=== PATIENT | male | born 1940 | race African-American/Black ===

== ENCOUNTER 2018-10-29 10:15 | Inpatient (IN) | payer BC, MEDICARE ==
[~2018-10-29] VITALS: Ht 162.6 cm; Wt 90.3 kg
[2018-10-29] VITALS (13 sets, daily range): BP systolic 70–126; BP diastolic 28–98
[~2018-10-29 10:15] MED LIST: ALT10 PO; ASPI-1159 PO; FENO145 PO; METO25TA6 PO
[2018-10-29] MEDS ORDERED: SODIUM CHLORIDE 0.9% 1,000 ML IV ONE (10:38)
[2018-10-29 11:42] LABS: HEMATOCRIT. 34.7 % (42.0-52.0); HEMOGLOBIN. 11.1 g/dL (14.0-18.0); MEAN CORPUSCULAR HEMOGLOBIN 29.6 pg (28.0-32.0); MEAN CORPUSCULAR VOLUME 92.5 fL (80.0-94.0); MEAN PLATELET VOLUME 8.6 fl (7.4-10.4); PLATELET 133 x1000/uL (130-400); RED BLOOD CELL COUNT 3.75 mill/uL (4.7-6.1); RED CELL DISTRIBUTION WIDTH 17.2 % (11.6-14.6)
[2018-10-29 11:47] LABS: CHLORIDE 114 mEq/L (98-107); INR 1.2; PROTHROMBIN TIME 12.1 sec (9.1-11.1)
[2018-10-29 11:53] LABS: BG BASE EXCESS -7.5 mmol/L (-2.0-2.0); BG CARBOXYHEMOGLOBIN 0.6 % (0.5-1.5); BG DEOXYHEMOGLOBIN 1.9 % (0.0-5.0); BG FRACTION INSPIRED OXYGEN 100; BG HCO3 ACT 18.7 mmol/L (22.0-26.0); BG METHEMOGLOBIN 0.2 % (0.0-1.5); BG OXYGEN SATURATION 98.1 % (92.0-98.5); BG OXYHEMOGLOBIN 97.3 % (94.0-97.0); BG PCO2 40.6 mmHg (35.0-45.0); BG PH 7.281 (7.350-7.450); BG PO2 131.9 mmHg (75.0-100.0); BG SAMPLE SITE RIGHT RADIAL; BG TOTAL HEMOGLOBIN 11.2 g/dL (12.0-18.0); BG VENT MODE MASK - NRB
[2018-10-29 11:54] LABS: ETHANOL BLOOD < 10 mg/dL
[2018-10-29 12:00] LABS: CREATINE KINASE 513 IU/L (39-308)
[2018-10-29] MEDS ORDERED: PIPERACILLIN/TAZ 3.375G PREMIX 50 ML IV ONE (13:15)
[2018-10-29] MEDS ORDERED: VANCOMYCIN 1 G PREMIX 200 ML IV SCH (13:15)
[2018-10-29 13:42] LABS: PLATELET ESTIMATE NORMAL
[2018-10-29] MEDS ORDERED: ONDANSETRON HCL 4MG/2ML INJ IV PRN (16:00)
[2018-10-29] MEDS ORDERED: NOREPINEPHRINE 4MG/250ML PMX 250 ML IV PRN (17:30)
[2018-10-29 18:00] LABS: BG BILEVEL POS AIRWAY PRESSURE 17/5; BG CARBOXYHEMOGLOBIN 0.3 % (0.5-1.5); BG FRACTION INSPIRED OXYGEN 60; BG HCO3 ACT 20.3 mmol/L (22.0-26.0); BG METHEMOGLOBIN 0.3 % (0.0-1.5); BG OXYGEN SATURATION 86.9 % (92.0-98.5); BG OXYHEMOGLOBIN 86.4 % (94.0-97.0); BG PCO2 34.4 mmHg (35.0-45.0); BG PH 7.388 (7.350-7.450); BG SAMPLE SITE RIGHT RADIAL; BG TOTAL HEMOGLOBIN 11.8 g/dL (12.0-18.0); BG VENT MODE MASK - BIPAP; BG VENT RATE 14 set
[2018-10-29 19:07] LABS: CLARITY URINE TURBID (CLEAR); COLOR URINE YELLOW (YELLOW); KETONES URINE TRACE (NEGATIVE); LEUKOCYTE ESTERASE URINE 3+ (NEGATIVE); NITRITE URINE NEGATIVE (NEGATIVE); OCCULT BLOOD URINE 2+ (NEGATIVE); PROTEIN URINE 2+ (NEGATIVE); SPECIFIC GRAVITY URINE 1.016 (1.005-1.030)
[2018-10-29 19:21] LABS: *BARBITURATES SCREEN URINE NEGATIVE (NEGATIVE); *BENZODIAZEPINES SCREEN URINE NEGATIVE (NEGATIVE)
[2018-10-29 19:22] LABS: *COCAINE SCREEN URINE NEGATIVE (NEGATIVE); CANNABINOID URINE SCREEN NEGATIVE (NEGATIVE); METHADONE URINE SCREEN NEGATIVE (NEGATIVE); OPIATES URINE SCREEN NEGATIVE (NEGATIVE); PHENCYCLIDINE URINE SCREEN NEGATIVE (NEGATIVE)
[2018-10-29 19:23] LABS: *AMPHETAMINES SCREEN URINE NEGATIVE (NEGATIVE)
[2018-10-29] MEDS ORDERED: DEXT 5%/0.45% NACL 1000ML 1,000 ML IV SCH ×2 (19:50→23:00)
[2018-10-29 22:54] LABS: BASOPHILS % 0.3 % (0.0-2.0); EOSINOPHILS % 0.3 % (0.0-5.0); HEMATOCRIT. 35.4 % (42.0-52.0); HEMOGLOBIN. 11.2 g/dL (14.0-18.0); LYMPHOCYTES % 8.7 % (20.0-50.0); MEAN CORPUSCULAR HEMOGLOBIN 29.1 pg (28.0-32.0); MEAN CORPUSCULAR VOLUME 91.7 fL (80.0-94.0); MEAN PLATELET VOLUME 8.8 fl (7.4-10.4); MONOCYTES % 11.3 % (2.0-8.0); NEUTROPHILS % 79.4 % (40.0-76.0); PLATELET 132 x1000/uL (130-400); RED BLOOD CELL COUNT 3.86 mill/uL (4.7-6.1); RED CELL DISTRIBUTION WIDTH 17.7 % (11.6-14.6)
[2018-10-29] MEDS: DEXT 5%/0.45% NACL 1000ML 1,000 ML IV SCH (23:02)
[2018-10-29] MEDS: PIPERACILLIN/TAZ 3.375G PREMIX 50 ML IV SCH (23:02)
[2018-10-29] MEDS: NOREPINEPHRINE 32 MG in DEXT 5% WATER 468 ML IV PRN (23:03)
[2018-10-30] VITALS (88 sets, daily range): BP systolic 66–155; BP diastolic 32–100
[2018-10-30 03:50] LABS: CREATINE KINASE 527 IU/L (39-308)
[2018-10-30] MEDS ORDERED: PHENYLEPHRINE 40 MG in DEXT 5% WATER 246 ML IV PRN (05:45)
[2018-10-30 05:48] LABS: BASOPHILS % 0.2 % (0.0-2.0); EOSINOPHILS % 0.4 % (0.0-5.0); HEMATOCRIT. 34.9 % (42.0-52.0); HEMOGLOBIN. 11.3 g/dL (14.0-18.0); LYMPHOCYTES % 8.9 % (20.0-50.0); MEAN CORPUSCULAR HEMOGLOBIN 29.6 pg (28.0-32.0); MEAN CORPUSCULAR VOLUME 91.4 fL (80.0-94.0); MEAN PLATELET VOLUME 8.2 fl (7.4-10.4); MONOCYTES % 9.9 % (2.0-8.0); NEUTROPHILS % 80.6 % (40.0-76.0); PLATELET 123 x1000/uL (130-400); RED BLOOD CELL COUNT 3.82 mill/uL (4.7-6.1); RED CELL DISTRIBUTION WIDTH 17.6 % (11.6-14.6)
[2018-10-30 05:59] LABS: CHLORIDE 111 mEq/L (98-107)
[2018-10-30] MEDS ORDERED: VANCOMYCIN 750 MG PREMIX 150 ML IV SCH (06:00)
[2018-10-30 06:15] LABS: LDL CHOLESTEROL 30 mg/dL (5-100)
[2018-10-30 06:16] LABS: CREATINE KINASE 632 IU/L (39-308)
[2018-10-30 06:17] LABS: HDL CHOLESTEROL 99 mg/dL (40-59)
[2018-10-30] MEDS: PIPERACILLIN/TAZ 3.375G PREMIX 50 ML IV SCH (07:06)
[2018-10-30 08:50] LABS: BG BASE EXCESS -4.8 mmol/L (-2.0-2.0); BG BILEVEL POS AIRWAY PRESSURE 17/5; BG CARBOXYHEMOGLOBIN 0.9 % (0.5-1.5); BG DEOXYHEMOGLOBIN 2.7 % (0.0-5.0); BG HCO3 ACT 18.8 mmol/L (22.0-26.0); BG METHEMOGLOBIN 0.3 % (0.0-1.5); BG OXYGEN SATURATION 97.3 % (92.0-98.5); BG OXYHEMOGLOBIN 96.1 % (94.0-97.0); BG PCO2 30.2 mmHg (35.0-45.0); BG PH 7.411 (7.350-7.450); BG PO2 93.6 mmHg (75.0-100.0); BG SAMPLE SITE RIGHT BRACHIAL; BG TOTAL HEMOGLOBIN 11.9 g/dL (12.0-18.0); BG VENT MODE MASK - BIPAP; BG VENT RATE 14 set
[2018-10-30] MEDS ORDERED: ENOXAPARIN 40MG/0.4ML SYR SUBCUT SCH (09:00)
[2018-10-30] MEDS: PROPOFOL 10MG/ML 100ML 100 ML IV PRN (09:42)
[2018-10-30] MEDS: ENOXAPARIN 30MG/0.3ML SYR SUBCUT SCH (09:45)
[2018-10-30 10:02] LABS: BG BASE EXCESS -5.5 mmol/L (-2.0-2.0); BG CARBOXYHEMOGLOBIN 0.1 % (0.5-1.5); BG HCO3 ACT 19.2 mmol/L (22.0-26.0); BG METHEMOGLOBIN 0.5 % (0.0-1.5); BG OXYHEMOGLOBIN 97.4 % (94.0-97.0); BG PCO2 34.7 mmHg (35.0-45.0); BG PH 7.361 (7.350-7.450); BG PO2 116.9 mmHg (75.0-100.0); BG SAMPLE SITE RIGHT RADIAL; BG TIDAL VOLUME(mL) 550 mL; BG TOTAL HEMOGLOBIN 12.2 g/dL (12.0-18.0); BG VENT MODE VENT - A/C; BG VENT RATE 16 set
[2018-10-30] MEDS: IPRATROPIUM/ALBUTEROL 0.5-3(2.5)MG/3ML NEB HHN SCH ×3 (12:31→20:15)
[2018-10-30] MEDS: PIPERACILLIN/TAZ 2.25G PREMIX 50 ML IV SCH ×3 (12:52→23:51)
[2018-10-30] MEDS ORDERED: ETOMIDATE 2MG/ML 10ML VIAL IV ONE (15:27)
[2018-10-30] MEDS ORDERED: SUCCINYLCHOLINE CHLORIDE 200MG/10ML IV ONE (15:27)
[2018-10-30] MEDS: NYSTATIN POWDER 15GM TOP SCH ×2 (15:54→21:17)
[2018-10-30] MEDS: DEXT 5%/0.45% NACL 1000ML 1,000 ML IV SCH (15:56)
[2018-10-30] MEDS: DEXT 5%/0.9% NACL 1,000 ML IV SCH (16:21)
[2018-10-30] MEDS: ACETYLCYSTEINE 100MG/ML 10% VIAL 4ML INH SCH (16:58)
[2018-10-30] MEDS: NOREPINEPHRINE 32 MG in DEXT 5% WATER 468 ML IV PRN (20:45)
[2018-10-31] VITALS (96 sets, daily range): BP systolic 91–150; BP diastolic 39–87
[2018-10-31] MEDS: IPRATROPIUM/ALBUTEROL 0.5-3(2.5)MG/3ML NEB HHN SCH ×6 (00:55→20:55)
[2018-10-31] MEDS: ACETYLCYSTEINE 100MG/ML 10% VIAL 4ML INH SCH ×3 (01:11→16:23)
[2018-10-31] MEDS: DEXT 5%/0.9% NACL 1,000 ML IV SCH ×3 (03:54→16:51)
[2018-10-31] MEDS: PROPOFOL 10MG/ML 100ML 100 ML IV PRN ×2 (03:58→13:40)
[2018-10-31 05:27] LABS: HEMATOCRIT. 33.5 % (42.0-52.0); MEAN CORPUSCULAR HEMOGLOBIN 29.8 pg (28.0-32.0); MEAN CORPUSCULAR VOLUME 91.1 fL (80.0-94.0); MEAN PLATELET VOLUME 8.5 fl (7.4-10.4); PLATELET 91 x1000/uL (130-400); RED BLOOD CELL COUNT 3.68 mill/uL (4.7-6.1); RED CELL DISTRIBUTION WIDTH 17.7 % (11.6-14.6)
[2018-10-31 05:36] LABS: INR 1.3; PROTHROMBIN TIME 12.8 sec (9.1-11.1)
[2018-10-31] MEDS: PIPERACILLIN/TAZ 2.25G PREMIX 50 ML IV SCH ×4 (05:52→23:35)
[2018-10-31 06:02] LABS: PHOSPHORUS 4.1 mg/dL (2.5-4.9)
[2018-10-31 07:42] LABS: BG BASE EXCESS -4.9 mmol/L (-2.0-2.0); BG FRACTION INSPIRED OXYGEN 80; BG HCO3 ACT 19.6 mmol/L (22.0-26.0); BG PCO2 35.1 mmHg (35.0-45.0); BG PH 7.365 (7.350-7.450); BG PO2 239.2 mmHg (75.0-100.0); BG SAMPLE SITE RIGHT RADIAL; BG TIDAL VOLUME(mL) 550 mL; BG VENT MODE VENT - A/C; BG VENT RATE 16 set
[2018-10-31 07:43] LABS: BG CARBOXYHEMOGLOBIN 0.3 % (0.5-1.5); BG DEOXYHEMOGLOBIN 0.8 % (0.0-5.0); BG METHEMOGLOBIN 0.3 % (0.0-1.5); BG OXYGEN SATURATION 99.2 % (92.0-98.5); BG OXYHEMOGLOBIN 98.6 % (94.0-97.0)
[2018-10-31 08:11] LABS: PLATELET ESTIMATE DECREASED
[2018-10-31] MEDS: ENOXAPARIN 30MG/0.3ML SYR SUBCUT SCH (11:14)
[2018-10-31] MEDS: NYSTATIN POWDER 15GM TOP SCH ×2 (11:14→21:49)
[2018-10-31] MEDS: PANTOPRAZOLE SODIUM 40 MG/VIAL IV SCH (13:40)
[2018-10-31] MEDS ORDERED: VANCOMYCIN 750 MG PREMIX 150 ML IV NR (17:00)
[2018-10-31] MEDS: NOREPINEPHRINE 32 MG in DEXT 5% WATER 468 ML IV PRN (21:46)
[2018-11-01] VITALS (90 sets, daily range): BP systolic 103–152; BP diastolic 47–113
[2018-11-01] MEDS: IPRATROPIUM/ALBUTEROL 0.5-3(2.5)MG/3ML NEB HHN SCH ×6 (00:55→20:17)
[2018-11-01] MEDS: ACETYLCYSTEINE 100MG/ML 10% VIAL 4ML INH SCH ×3 (00:55→15:17)
[2018-11-01] MEDS: NOREPINEPHRINE 32 MG in DEXT 5% WATER 468 ML IV PRN (03:23)
[2018-11-01] MEDS: PIPERACILLIN/TAZ 2.25G PREMIX 50 ML IV SCH (05:04)
[2018-11-01] MEDS ORDERED: LIDOCAINE HCL 1% 20ML VIAL (Pyxis) INJ ONE (08:34)
[2018-11-01] MEDS: PANTOPRAZOLE SODIUM 40 MG/VIAL IV SCH (10:23)
[2018-11-01] MEDS: ENOXAPARIN 30MG/0.3ML SYR SUBCUT SCH (10:23)
[2018-11-01] MEDS: NYSTATIN POWDER 15GM TOP SCH ×2 (10:24→21:30)
[2018-11-01] MEDS: PROPOFOL 10MG/ML 100ML 100 ML IV PRN (10:28)
[2018-11-01 13:53] LABS: BG BASE EXCESS -2.6 mmol/L (-2.0-2.0); BG CARBOXYHEMOGLOBIN 0.7 % (0.5-1.5); BG CPAP (cmH2O) 0 cm(H2O); BG DEOXYHEMOGLOBIN 3.4 % (0.0-5.0); BG HCO3 ACT 21.5 mmol/L (22.0-26.0); BG METHEMOGLOBIN 0.3 % (0.0-1.5); BG OXYGEN SATURATION 96.6 % (92.0-98.5); BG OXYHEMOGLOBIN 95.6 % (94.0-97.0); BG PCO2 34.8 mmHg (35.0-45.0); BG PH 7.409 (7.350-7.450); BG PO2 84.4 mmHg (75.0-100.0); BG SAMPLE SITE RIGHT BRACHIAL; BG TOTAL HEMOGLOBIN 11.8 g/dL (12.0-18.0); BG VENT MODE VENT - CPAP
[2018-11-01] MEDS: CEFAZOLIN 1000MG PREMIX 50 ML IV SCH (14:43)
[2018-11-01 17:13] LABS: BASOPHILS % 0.1 % (0.0-2.0); EOSINOPHILS % 0.3 % (0.0-5.0); HEMATOCRIT. 30.3 % (42.0-52.0); HEMOGLOBIN. 9.7 g/dL (14.0-18.0); LYMPHOCYTES % 7.1 % (20.0-50.0); MEAN CORPUSCULAR HEMOGLOBIN 29.3 pg (28.0-32.0); MEAN CORPUSCULAR VOLUME 91.4 fL (80.0-94.0); MEAN PLATELET VOLUME 8.6 fl (7.4-10.4); MONOCYTES % 3.7 % (2.0-8.0); NEUTROPHILS % 88.8 % (40.0-76.0); PLATELET 61 x1000/uL (130-400); RED BLOOD CELL COUNT 3.31 mill/uL (4.7-6.1)
[2018-11-02] VITALS (72 sets, daily range): BP systolic 116–174; BP diastolic 43–84
[2018-11-02] MEDS: ACETYLCYSTEINE 100MG/ML 10% VIAL 4ML INH SCH ×2 (00:24→08:54)
[2018-11-02] MEDS: IPRATROPIUM/ALBUTEROL 0.5-3(2.5)MG/3ML NEB HHN SCH ×5 (00:24→20:09)
[2018-11-02 06:10] LABS: BASOPHILS % 0.1 % (0.0-2.0); EOSINOPHILS % 0.3 % (0.0-5.0); HEMATOCRIT. 28.9 % (42.0-52.0); HEMOGLOBIN. 9.7 g/dL (14.0-18.0); LYMPHOCYTES % 8.3 % (20.0-50.0); MEAN CORPUSCULAR HEMOGLOBIN 30.5 pg (28.0-32.0); MEAN CORPUSCULAR VOLUME 90.8 fL (80.0-94.0); MEAN PLATELET VOLUME 8.5 fl (7.4-10.4); MONOCYTES % 5.5 % (2.0-8.0); NEUTROPHILS % 85.8 % (40.0-76.0); PLATELET 56 x1000/uL (130-400); RED BLOOD CELL COUNT 3.18 mill/uL (4.7-6.1)
[2018-11-02 07:04] LABS: CHLORIDE 122 mEq/L (98-107)
[2018-11-02 07:12] LABS: CREATINE KINASE 393 IU/L (39-308)
[2018-11-02 07:15] LABS: CREATINE KINASE MB FRACTION 4.8 ng/mL (0.5-3.6)
[2018-11-02] MEDS: PANTOPRAZOLE SODIUM 40 MG/VIAL IV SCH (09:00)
[2018-11-02] MEDS: NYSTATIN POWDER 15GM TOP SCH ×2 (12:04→21:02)
[2018-11-02] MEDS: ENOXAPARIN 30MG/0.3ML SYR SUBCUT SCH (12:20)
[2018-11-02] MEDS: CEFAZOLIN 1000MG PREMIX 50 ML IV SCH (19:34)
[2018-11-02] MEDS: FUROSEMIDE 40MG/4ML VIAL IVP SCH (19:34)
[2018-11-02] MEDS: SODIUM CHLORIDE 3% FOR INH 4ML UD NEB INH SCH (20:09)
[2018-11-03] VITALS (40 sets, daily range): BP systolic 123–188; BP diastolic 61–134
[2018-11-03] MEDS: ACETYLCYSTEINE 100MG/ML 10% VIAL 4ML INH SCH ×3 (00:14→16:52)
[2018-11-03] MEDS: IPRATROPIUM/ALBUTEROL 0.5-3(2.5)MG/3ML NEB HHN SCH ×6 (00:14→21:40)
[2018-11-03] MEDS: SODIUM CHLORIDE 3% FOR INH 4ML UD NEB INH SCH ×4 (04:41→21:41)
[2018-11-03 06:35] LABS: BASOPHILS % 0.1 % (0.0-2.0); EOSINOPHILS % 0.4 % (0.0-5.0); HEMATOCRIT. 32.4 % (42.0-52.0); HEMOGLOBIN. 10.5 g/dL (14.0-18.0); LYMPHOCYTES % 12.3 % (20.0-50.0); MEAN CORPUSCULAR HEMOGLOBIN 29.3 pg (28.0-32.0); MEAN CORPUSCULAR VOLUME 90.2 fL (80.0-94.0); MEAN PLATELET VOLUME 8.9 fl (7.4-10.4); MONOCYTES % 9.7 % (2.0-8.0); NEUTROPHILS % 77.5 % (40.0-76.0); RED BLOOD CELL COUNT 3.59 mill/uL (4.7-6.1); RED CELL DISTRIBUTION WIDTH 17.8 % (11.6-14.6)
[2018-11-03 07:05] LABS: PHOSPHORUS 5.4 mg/dL (2.5-4.9)
[2018-11-03 07:47] LABS: PLATELET 50 x1000/uL (130-400)
[2018-11-03] MEDS: PANTOPRAZOLE SODIUM 40 MG/VIAL IV SCH (09:45)
[2018-11-03] MEDS: FUROSEMIDE 40MG/4ML VIAL IVP SCH (09:45)
[2018-11-03] MEDS: NYSTATIN POWDER 15GM TOP SCH ×2 (09:47→22:03)
[2018-11-03] MEDS: DILTIAZEM HCL 30MG TABLET PO SCH ×2 (13:51→22:02)
[2018-11-03] MEDS: CEFAZOLIN 1000MG PREMIX 50 ML IV SCH (13:52)
[2018-11-03] MEDS: NITROGLYCERIN OINT 1GM/INCH UDPKT TD SCH (18:04)
[2018-11-04] VITALS (11 sets, daily range): BP systolic 118–138; BP diastolic 51–75
[2018-11-04] MEDS: NITROGLYCERIN OINT 1GM/INCH UDPKT TD SCH ×4 (00:33→18:02)
[2018-11-04] MEDS: IPRATROPIUM/ALBUTEROL 0.5-3(2.5)MG/3ML NEB HHN SCH ×6 (03:09→21:02)
[2018-11-04] MEDS: ACETYLCYSTEINE 100MG/ML 10% VIAL 4ML INH SCH ×3 (03:09→21:02)
[2018-11-04] MEDS: DILTIAZEM HCL 30MG TABLET PO SCH ×3 (05:38→22:14)
[2018-11-04] MEDS: SODIUM CHLORIDE 3% FOR INH 4ML UD NEB INH SCH ×2 (06:30→16:20)
[2018-11-04 07:41] LABS: HEMATOCRIT. 31.5 % (42.0-52.0); HEMOGLOBIN. 10.3 g/dL (14.0-18.0); MEAN CORPUSCULAR HEMOGLOBIN 29.8 pg (28.0-32.0); MEAN CORPUSCULAR VOLUME 91.3 fL (80.0-94.0); PLATELET 57 x1000/uL (130-400); RED BLOOD CELL COUNT 3.45 mill/uL (4.7-6.1); RED CELL DISTRIBUTION WIDTH 17.8 % (11.6-14.6)
[2018-11-04 08:42] LABS: PHOSPHORUS 5.5 mg/dL (2.5-4.9)
[2018-11-04 10:21] LABS: PLATELET ESTIMATE DECREASED
[2018-11-04] MEDS: NYSTATIN POWDER 15GM TOP SCH ×2 (10:58→22:14)
[2018-11-04] MEDS: PANTOPRAZOLE SODIUM 40 MG/VIAL IV SCH (14:11)
[2018-11-04] MEDS: CEFAZOLIN 1000MG PREMIX 50 ML IV SCH (15:14)
[2018-11-05] VITALS (76 sets, daily range): BP systolic 52–137; BP diastolic 31–94
[2018-11-05] MEDS: IPRATROPIUM/ALBUTEROL 0.5-3(2.5)MG/3ML NEB HHN SCH ×6 (00:55→23:44)
[2018-11-05] MEDS: NITROGLYCERIN OINT 1GM/INCH UDPKT TD SCH ×2 (01:46→06:00)
[2018-11-05 05:57] LABS: BG BASE EXCESS 1.4 mmol/L (-2.0-2.0); BG CARBOXYHEMOGLOBIN 0.2 % (0.5-1.5); BG DEOXYHEMOGLOBIN 6.2 % (0.0-5.0); BG FRACTION INSPIRED OXYGEN 100; BG HCO3 ACT 26.7 mmol/L (22.0-26.0); BG METHEMOGLOBIN 0.4 % (0.0-1.5); BG OXYGEN SATURATION 93.8 % (92.0-98.5); BG OXYHEMOGLOBIN 93.2 % (94.0-97.0); BG PCO2 45.1 mmHg (35.0-45.0); BG PO2 76.4 mmHg (75.0-100.0); BG SAMPLE SITE RIGHT RADIAL; BG TOTAL HEMOGLOBIN 11.2 g/dL (12.0-18.0); BG VENT MODE MASK - NRB
[2018-11-05] MEDS: DILTIAZEM HCL 30MG TABLET PO SCH (06:00)
[2018-11-05] MEDS: ACETAMINOPHEN 325MG TABLET PO PRN (06:10)
[2018-11-05 07:08] LABS: BASOPHILS % 0.4 % (0.0-2.0); EOSINOPHILS % 0.5 % (0.0-5.0); HEMATOCRIT. 32.8 % (42.0-52.0); HEMOGLOBIN. 10.5 g/dL (14.0-18.0); LYMPHOCYTES % 16.2 % (20.0-50.0); MEAN CORPUSCULAR HEMOGLOBIN 29.3 pg (28.0-32.0); MEAN CORPUSCULAR VOLUME 91.3 fL (80.0-94.0); MEAN PLATELET VOLUME 8.7 fl (7.4-10.4); MONOCYTES % 11.4 % (2.0-8.0); NEUTROPHILS % 71.5 % (40.0-76.0); PLATELET 91 x1000/uL (130-400); RED BLOOD CELL COUNT 3.59 mill/uL (4.7-6.1); RED CELL DISTRIBUTION WIDTH 17.6 % (11.6-14.6)
[2018-11-05] MEDS ORDERED: PIPERACILLIN/TAZOBACTAM 3.375GM/50ML PREMIX IV ONE (07:45)
[2018-11-05] MEDS ORDERED: PIPERACILLIN/TAZ 3.375G PREMIX 50 ML IV NR (08:00)
[2018-11-05] MEDS ORDERED: PHENYLEPHRINE 40 MG in DEXT 5% WATER 246 ML IV PRN (08:30)
[2018-11-05 08:47] LABS: BG BASE EXCESS -3.5 mmol/L (-2.0-2.0); BG CARBOXYHEMOGLOBIN 0.3 % (0.5-1.5); BG DEOXYHEMOGLOBIN 1.9 % (0.0-5.0); BG FRACTION INSPIRED OXYGEN 100; BG HCO3 ACT 20.5 mmol/L (22.0-26.0); BG METHEMOGLOBIN 0.2 % (0.0-1.5); BG OXYGEN SATURATION 98.1 % (92.0-98.5); BG OXYHEMOGLOBIN 97.6 % (94.0-97.0); BG PCO2 32.9 mmHg (35.0-45.0); BG PH 7.413 (7.350-7.450); BG PO2 113.6 mmHg (75.0-100.0); BG SAMPLE SITE RIGHT BRACHIAL; BG TIDAL VOLUME(mL) 600 mL; BG TOTAL HEMOGLOBIN 9.1 g/dL (12.0-18.0); BG VENT MODE VENT - A/C; BG VENT RATE 14 set
[2018-11-05] MEDS ORDERED: NOREPINEPHRINE 16 MG in DEXT 5% WATER 234 ML IV PRN (09:00)
[2018-11-05 09:28] LABS: HEMATOCRIT 32.4 % (42.0-52.0); HEMOGLOBIN 10.2 g/dL (14.0-18.0); MEAN CORPUSCULAR HEMOGLOBIN 29.6 pg (28.0-32.0); MEAN CORPUSCULAR VOLUME 93.8 fL (80.0-94.0); PLATELET 101 x1000/uL (130-400); RED BLOOD CELL COUNT 3.45 mill/uL (4.7-6.1); RED CELL DISTRIBUTION WIDTH 18.2 % (11.6-14.6)
[2018-11-05] MEDS: PANTOPRAZOLE SODIUM 40 MG/VIAL IV SCH ×3 (11:31→20:13)
[2018-11-05] MEDS: NYSTATIN POWDER 15GM TOP SCH (11:36)
[2018-11-05] MEDS: PHENYLEPHRINE 80 MG in DEXT 5% WATER 500 ML IV PRN ×2 (11:37→19:58)
[2018-11-05] MEDS ORDERED: DEXT 5% WATER 500 ML IV ONE (11:45)
[2018-11-05] MEDS ORDERED: DEXT 5%/0.45% NACL 500ML 500 ML IV ONE (12:00)
[2018-11-05] MEDS: DEXTROSE 5% WATER 1,000 ML IV SCH ×2 (12:18→20:06)
[2018-11-05] MEDS ORDERED: SUCCINYLCHOLINE CHLORIDE 200MG/10ML IV ONE (13:21)
[2018-11-05] MEDS ORDERED: VECURONIUM BROMIDE 10 MG/VIAL IV ONE (13:21)
[2018-11-05] MEDS: METRONIDAZOLE 500 MG PREMIX 100 ML IV SCH ×2 (13:59→22:19)
[2018-11-05] MEDS: CEFEPIME 2,000 MG in DEXT 5% WATER 100 ML IV SCH (14:09)
[2018-11-05] MEDS: VANCOMYCIN 1,750 MG in DEXT 5% WATER 250 ML IV NR ×2 (14:48→17:45)
[2018-11-05] MEDS ORDERED: OCTREOTIDE ACETATE 50 MCG/ML 1ML IV STA (15:46)
[2018-11-05] MEDS ORDERED: OCTREOTIDE 50 MCG in SODIUM CHLORIDE 0.9% 50 ML SUBCUT NR (16:30)
[2018-11-05] MEDS: OCTREOTIDE 1,000 MCG in SODIUM CHLORIDE 0.9% 100 ML IV SCH (17:44)
[2018-11-05 18:52] LABS: HEMATOCRIT 29.9 % (42.0-52.0); HEMOGLOBIN 9.4 g/dL (14.0-18.0)
[2018-11-05 19:00] LABS: INR 1.1; PROTHROMBIN TIME 11.5 sec (9.1-11.1)
[2018-11-05] MEDS ORDERED: OCTREOTIDE 50 MCG in SODIUM CHLORIDE 0.9% 50 ML IV NR (19:32)
[2018-11-06] VITALS (101 sets, daily range): BP systolic 81–166; BP diastolic 39–83
[2018-11-06 00:52] LABS: HEMATOCRIT 30.3 % (42.0-52.0); HEMOGLOBIN 9.5 g/dL (14.0-18.0)
[2018-11-06] MEDS: NYSTATIN POWDER 15GM TOP SCH ×3 (03:06→21:22)
[2018-11-06] MEDS: PHENYLEPHRINE 80 MG in DEXT 5% WATER 492 ML IV PRN ×2 (03:06→12:13)
[2018-11-06] MEDS: IPRATROPIUM/ALBUTEROL 0.5-3(2.5)MG/3ML NEB HHN SCH ×4 (04:17→19:58)
[2018-11-06 05:05] LABS: HEMOGLOBIN. 9.3 g/dL (14.0-18.0); MEAN CORPUSCULAR VOLUME 93.4 fL (80.0-94.0); MEAN PLATELET VOLUME 8.9 fl (7.4-10.4); PLATELET 126 x1000/uL (130-400); RED BLOOD CELL COUNT 3.21 mill/uL (4.7-6.1); RED CELL DISTRIBUTION WIDTH 17.6 % (11.6-14.6)
[2018-11-06] MEDS: METRONIDAZOLE 500 MG PREMIX 100 ML IV SCH ×3 (05:12→21:22)
[2018-11-06] MEDS: DEXTROSE 5% WATER 1,000 ML IV SCH ×2 (05:12→12:11)
[2018-11-06 07:23] LABS: PLATELET ESTIMATE SLIGHTLY DECREASED
[2018-11-06 11:09] LABS: BG BASE EXCESS -8.4 mmol/L (-2.0-2.0); BG CARBOXYHEMOGLOBIN 0.3 % (0.5-1.5); BG DEOXYHEMOGLOBIN 6.9 % (0.0-5.0); BG FRACTION INSPIRED OXYGEN 60; BG HCO3 ACT 16.1 mmol/L (22.0-26.0); BG METHEMOGLOBIN 0.3 % (0.0-1.5); BG OXYGEN SATURATION 93.1 % (92.0-98.5); BG OXYHEMOGLOBIN 92.5 % (94.0-97.0); BG PCO2 29.8 mmHg (35.0-45.0); BG PO2 71.5 mmHg (75.0-100.0); BG SAMPLE SITE RIGHT BRACHIAL; BG TIDAL VOLUME(mL) 600 mL; BG TOTAL HEMOGLOBIN 10.2 g/dL (12.0-18.0); BG VENT MODE VENT - A/C; BG VENT RATE 14 set
[2018-11-06] MEDS: PANTOPRAZOLE SODIUM 40 MG/VIAL IV SCH ×2 (11:19→21:22)
[2018-11-06] MEDS: OCTREOTIDE 1,000 MCG in SODIUM CHLORIDE 0.9% 100 ML IV SCH (11:19)
[2018-11-06 12:32] LABS: HEMATOCRIT 27.8 % (42.0-52.0); HEMOGLOBIN 8.7 g/dL (14.0-18.0)
[2018-11-06] MEDS: CEFEPIME 2,000 MG in DEXT 5% WATER 100 ML IV SCH (13:25)
[2018-11-06] MEDS ORDERED: SODIUM CHLORIDE 0.9% 10ML VIAL ONE (14:39)
[2018-11-06] MEDS ORDERED: MIDAZOLAM HCL 5 MG/5 ML VIAL IV PRN (16:22)
[2018-11-06] MEDS ORDERED: MIDAZOLAM HCL 5 MG/5 ML VIAL ONE (16:24)
[2018-11-06] MEDS ORDERED: FENTANYL CITRATE/PF 50MCG/ML 2ML VIAL ONE (16:25)
[2018-11-06 19:18] LABS: HEMATOCRIT 26.3 % (42.0-52.0); HEMOGLOBIN 8.2 g/dL (14.0-18.0)
[2018-11-07] VITALS (89 sets, daily range): BP systolic 76–129; BP diastolic 36–73
[2018-11-07] MEDS: IPRATROPIUM/ALBUTEROL 0.5-3(2.5)MG/3ML NEB HHN SCH ×6 (00:26→20:49)
[2018-11-07] MEDS: PHENYLEPHRINE 80 MG in DEXT 5% WATER 492 ML IV PRN (01:34)
[2018-11-07] MEDS: METRONIDAZOLE 500 MG PREMIX 100 ML IV SCH ×3 (05:26→21:43)
[2018-11-07 05:51] LABS: HEMATOCRIT. 26.7 % (42.0-52.0); HEMOGLOBIN. 8.3 g/dL (14.0-18.0); MEAN CORPUSCULAR HEMOGLOBIN 28.9 pg (28.0-32.0); MEAN CORPUSCULAR VOLUME 92.2 fL (80.0-94.0); MEAN PLATELET VOLUME 9.5 fl (7.4-10.4); PLATELET 138 x1000/uL (130-400); RED BLOOD CELL COUNT 2.89 mill/uL (4.7-6.1); RED CELL DISTRIBUTION WIDTH 17.8 % (11.6-14.6)
[2018-11-07] MEDS: SODIUM CHLORIDE 0.9% 1,000 ML IV SCH (06:57)
[2018-11-07] MEDS ORDERED: POTASSIUM CHLORIDE 20MEQ/PACKET PO SCH (07:00)
[2018-11-07] MEDS: PANTOPRAZOLE SODIUM 40 MG/VIAL IV SCH ×2 (09:47→21:42)
[2018-11-07 09:59] LABS: PLATELET ESTIMATE NORMAL
[2018-11-07] MEDS ORDERED: VANCOMYCIN 1250MG in DEXTROSE 5% WATER 250ML IV NR (10:00)
[2018-11-07] MEDS: LORAZEPAM 2MG/ML CPJ IV PRN ×2 (10:25→14:14)
[2018-11-07 12:24] LABS: BG BASE EXCESS -8.3 mmol/L (-2.0-2.0); BG CARBOXYHEMOGLOBIN 0.1 % (0.5-1.5); BG DEOXYHEMOGLOBIN 3.7 % (0.0-5.0); BG FRACTION INSPIRED OXYGEN 40; BG HCO3 ACT 16.4 mmol/L (22.0-26.0); BG METHEMOGLOBIN 0.4 % (0.0-1.5); BG OXYGEN SATURATION 96.3 % (92.0-98.5); BG OXYHEMOGLOBIN 95.8 % (94.0-97.0); BG PCO2 30.9 mmHg (35.0-45.0); BG PH 7.344 (7.350-7.450); BG PO2 88.7 mmHg (75.0-100.0); BG PRESSURE SUPPORT 14; BG SAMPLE SITE RIGHT RADIAL; BG TIDAL VOLUME(mL) 600 mL; BG TOTAL HEMOGLOBIN 8.9 g/dL (12.0-18.0); BG VENT MODE VENT - SIMV; BG VENT RATE 10 set
[2018-11-07] MEDS: LEVOFLOXACIN 750MG PREMIX 150 ML IV SCH (12:50)
[2018-11-07] MEDS: NYSTATIN POWDER 15GM TOP SCH ×2 (12:51→21:43)
[2018-11-07] MEDS: PROPOFOL 10MG/ML 100ML 100 ML IV PRN ×2 (15:34→21:56)
[2018-11-08] VITALS (97 sets, daily range): BP systolic 81–138; BP diastolic 47–77
[2018-11-08] MEDS: IPRATROPIUM/ALBUTEROL 0.5-3(2.5)MG/3ML NEB HHN SCH ×6 (00:45→19:42)
[2018-11-08] MEDS: PHENYLEPHRINE 80 MG in DEXT 5% WATER 492 ML IV PRN ×2 (01:03→09:31)
[2018-11-08] MEDS: SODIUM CHLORIDE 0.9% 1,000 ML IV SCH ×2 (02:45→10:57)
[2018-11-08] MEDS: PROPOFOL 10MG/ML 100ML 100 ML IV PRN ×3 (04:20→17:00)
[2018-11-08 05:28] LABS: HEMATOCRIT. 25.8 % (42.0-52.0); HEMOGLOBIN. 8.2 g/dL (14.0-18.0); MEAN CORPUSCULAR HEMOGLOBIN 29.1 pg (28.0-32.0); MEAN CORPUSCULAR VOLUME 91.8 fL (80.0-94.0); MEAN PLATELET VOLUME 9.7 fl (7.4-10.4); PLATELET 185 x1000/uL (130-400); RED BLOOD CELL COUNT 2.81 mill/uL (4.7-6.1); RED CELL DISTRIBUTION WIDTH 17.1 % (11.6-14.6)
[2018-11-08 05:43] LABS: PHOSPHORUS 6.3 mg/dL (2.5-4.9)
[2018-11-08] MEDS: METRONIDAZOLE 500 MG PREMIX 100 ML IV SCH ×3 (05:47→21:31)
[2018-11-08] MEDS: PANTOPRAZOLE SODIUM 40 MG/VIAL IV SCH ×2 (09:30→21:31)
[2018-11-08] MEDS: NYSTATIN POWDER 15GM TOP SCH ×2 (09:31→21:31)
[2018-11-08 09:32] LABS: PLATELET ESTIMATE NORMAL
[2018-11-09] VITALS (98 sets, daily range): BP systolic 86–144; BP diastolic 43–79
[2018-11-09] MEDS: IPRATROPIUM/ALBUTEROL 0.5-3(2.5)MG/3ML NEB HHN SCH ×6 (00:46→20:55)
[2018-11-09] MEDS: PROPOFOL 10MG/ML 100ML 100 ML IV PRN ×2 (00:52→05:45)
[2018-11-09] MEDS: PHENYLEPHRINE 80 MG in DEXT 5% WATER 492 ML IV PRN (00:52)
[2018-11-09] MEDS: IPRATROPIUM/ALBUTEROL 0.5-3(2.5)MG/3ML NEB HHN PRN (04:20)
[2018-11-09] MEDS: METRONIDAZOLE 500 MG PREMIX 100 ML IV SCH ×2 (05:15→17:42)
[2018-11-09 05:34] LABS: HEMATOCRIT. 27.2 % (42.0-52.0); HEMOGLOBIN. 8.6 g/dL (14.0-18.0); MEAN CORPUSCULAR HEMOGLOBIN 29.4 pg (28.0-32.0); MEAN CORPUSCULAR VOLUME 92.7 fL (80.0-94.0); MEAN PLATELET VOLUME 9.5 fl (7.4-10.4); PLATELET 236 x1000/uL (130-400); RED BLOOD CELL COUNT 2.93 mill/uL (4.7-6.1); RED CELL DISTRIBUTION WIDTH 17.8 % (11.6-14.6)
[2018-11-09 06:16] LABS: PHOSPHORUS 6.5 mg/dL (2.5-4.9)
[2018-11-09] MEDS: LANTHANUM CARBONATE 500MG CHEW TABLET PO SCH ×3 (07:39→17:41)
[2018-11-09 07:50] LABS: BG BASE EXCESS -11.1 mmol/L (-2.0-2.0); BG CARBOXYHEMOGLOBIN 0.3 % (0.5-1.5); BG DEOXYHEMOGLOBIN 8.4 % (0.0-5.0); BG FRACTION INSPIRED OXYGEN 40; BG HCO3 ACT 14.8 mmol/L (22.0-26.0); BG METHEMOGLOBIN 0.4 % (0.0-1.5); BG OXYGEN SATURATION 91.5 % (92.0-98.5); BG OXYHEMOGLOBIN 90.9 % (94.0-97.0); BG PO2 71.1 mmHg (75.0-100.0); BG SAMPLE SITE RIGHT RADIAL; BG TIDAL VOLUME(mL) 600 mL; BG TOTAL HEMOGLOBIN 9.1 g/dL (12.0-18.0); BG VENT MODE VENT - A/C; BG VENT RATE 18 set
[2018-11-09] MEDS: PANTOPRAZOLE SODIUM 40 MG/VIAL IV SCH ×2 (08:30→21:56)
[2018-11-09] MEDS: LEVOFLOXACIN 750MG PREMIX 150 ML IV SCH (08:30)
[2018-11-09] MEDS: CITRIC ACID/SODIUM CITRATE SOLN 30ML UDC PO SCH ×3 (08:30→17:41)
[2018-11-09] MEDS: NYSTATIN POWDER 15GM TOP SCH ×2 (08:31→21:56)
[2018-11-09] MEDS ORDERED: BISACODYL 10MG SUPP PR PRN (09:00)
[2018-11-09] MEDS ORDERED: BISACODYL 5MG TABLET PO PRN (09:15)
[2018-11-09 12:49] LABS: PLATELET ESTIMATE NORMAL
[2018-11-09] MEDS: DOCUSATE SODIUM SUGAR FREE 100MG/10ML UDC NG SCH (13:44)
[2018-11-09] MEDS: FENTANYL CITRATE/PF 500 MCG in SODIUM CHLORIDE 0.9% 40 ML IV PRN ×2 (13:45→19:43)
[2018-11-09] MEDS: LORAZEPAM 2MG/ML CPJ IV PRN (17:42)
[2018-11-10] VITALS (98 sets, daily range): BP systolic 85–131; BP diastolic 45–77
[2018-11-10] MEDS: IPRATROPIUM/ALBUTEROL 0.5-3(2.5)MG/3ML NEB HHN SCH ×6 (00:28→20:33)
[2018-11-10] MEDS: FENTANYL CITRATE/PF 500 MCG in SODIUM CHLORIDE 0.9% 40 ML IV PRN ×5 (01:09→21:06)
[2018-11-10] MEDS: METRONIDAZOLE 500 MG PREMIX 100 ML IV SCH ×2 (05:25→18:24)
[2018-11-10 05:35] LABS: HEMATOCRIT. 25.6 % (42.0-52.0); HEMOGLOBIN. 8.2 g/dL (14.0-18.0); MEAN CORPUSCULAR HEMOGLOBIN 29.1 pg (28.0-32.0); MEAN CORPUSCULAR VOLUME 90.8 fL (80.0-94.0); MEAN PLATELET VOLUME 9.3 fl (7.4-10.4); PLATELET 273 x1000/uL (130-400); RED BLOOD CELL COUNT 2.82 mill/uL (4.7-6.1); RED CELL DISTRIBUTION WIDTH 17.9 % (11.6-14.6)
[2018-11-10 07:45] LABS: BG BASE EXCESS -8.2 mmol/L (-2.0-2.0); BG DEOXYHEMOGLOBIN 2.6 % (0.0-5.0); BG HCO3 ACT 16.8 mmol/L (22.0-26.0); BG METHEMOGLOBIN 0.5 % (0.0-1.5); BG OXYGEN SATURATION 97.4 % (92.0-98.5); BG OXYHEMOGLOBIN 96.9 % (94.0-97.0); BG PCO2 32.4 mmHg (35.0-45.0); BG PH 7.333 (7.350-7.450); BG PO2 104.1 mmHg (75.0-100.0); BG SAMPLE SITE RIGHT RADIAL; BG TIDAL VOLUME(mL) 600 mL; BG TOTAL HEMOGLOBIN 8.1 g/dL (12.0-18.0); BG VENT MODE VENT - A/C; BG VENT RATE 20 set
[2018-11-10 08:10] LABS: NUCLEATED RED BLOOD CELLS 2 /100 WBC; PLATELET ESTIMATE NORMAL
[2018-11-10] MEDS: NYSTATIN POWDER 15GM TOP SCH ×2 (09:33→20:13)
[2018-11-10] MEDS: LANTHANUM CARBONATE 500MG CHEW TABLET PO SCH ×3 (09:33→16:42)
[2018-11-10] MEDS: CITRIC ACID/SODIUM CITRATE SOLN 30ML UDC PO SCH ×3 (09:33→16:42)
[2018-11-10] MEDS: PANTOPRAZOLE SODIUM 40 MG/VIAL IV SCH ×2 (09:33→20:13)
[2018-11-10] MEDS: DOCUSATE SODIUM SUGAR FREE 100MG/10ML UDC NG SCH (09:33)
[2018-11-10] MEDS: LORAZEPAM 2MG/ML CPJ IV PRN ×2 (10:19→16:42)
[2018-11-10 12:36] LABS: CREATININE URINE (RAW) 42.4 mg/dl
[2018-11-10] MEDS ORDERED: DEXT 5%/0.45% NACL 1000ML 1,000 ML IV SCH (23:30)
[2018-11-11] VITALS (90 sets, daily range): BP systolic 81–144; BP diastolic 46–92
[2018-11-11] MEDS: IPRATROPIUM/ALBUTEROL 0.5-3(2.5)MG/3ML NEB HHN SCH ×6 (01:16→20:19)
[2018-11-11] MEDS: FENTANYL CITRATE/PF 500 MCG in SODIUM CHLORIDE 0.9% 40 ML IV PRN ×2 (01:58→07:02)
[2018-11-11 05:02] LABS: HEMATOCRIT. 23.5 % (42.0-52.0); HEMOGLOBIN. 7.7 g/dL (14.0-18.0); MEAN CORPUSCULAR HEMOGLOBIN 29.4 pg (28.0-32.0); MEAN CORPUSCULAR VOLUME 89.9 fL (80.0-94.0); MEAN PLATELET VOLUME 8.8 fl (7.4-10.4); PLATELET 282 x1000/uL (130-400); RED BLOOD CELL COUNT 2.62 mill/uL (4.7-6.1); RED CELL DISTRIBUTION WIDTH 17.4 % (11.6-14.6)
[2018-11-11 05:25] LABS: PHOSPHORUS 4.1 mg/dL (2.5-4.9)
[2018-11-11] MEDS: METRONIDAZOLE 500 MG PREMIX 100 ML IV SCH ×2 (05:43→17:14)
[2018-11-11] MEDS: LANTHANUM CARBONATE 500MG CHEW TABLET PO SCH ×3 (07:38→17:13)
[2018-11-11] MEDS: DEXTROSE 5% WATER 1,000 ML IV SCH (07:38)
[2018-11-11 08:15] LABS: PLATELET ESTIMATE NORMAL
[2018-11-11] MEDS: PANTOPRAZOLE SODIUM 40 MG/VIAL IV SCH ×2 (08:22→20:59)
[2018-11-11] MEDS: CITRIC ACID/SODIUM CITRATE SOLN 30ML UDC PO SCH ×3 (08:23→17:13)
[2018-11-11] MEDS: DOCUSATE SODIUM SUGAR FREE 100MG/10ML UDC NG SCH (08:23)
[2018-11-11] MEDS: NYSTATIN POWDER 15GM TOP SCH ×2 (08:40→20:59)
[2018-11-11] MEDS: LEVOFLOXACIN 500MG PREMIX 100 ML IV SCH (08:40)
[2018-11-11] MEDS ORDERED: POTASSIUM CHLORIDE INJ 40 MEQ in DEXT 5% WATER 250 ML IV ONE (09:00)
[2018-11-11] MEDS ORDERED: HYDROMORPHONE HCL/PF 2MG/ML CPJ IV PRN (11:45)
[2018-11-11] MEDS ORDERED: FENTANYL CITRATE/PF 50MCG/ML 2ML VIAL ONE (14:15)
[2018-11-11] MEDS ORDERED: MIDAZOLAM HCL 5 MG/5 ML VIAL ONE (14:15)
[2018-11-11] MEDS ORDERED: SODIUM CHLORIDE 0.9% 10ML VIAL ONE (16:09)
[2018-11-11 20:13] LABS: HEMATOCRIT 23.1 % (42.0-52.0); HEMOGLOBIN 7.5 g/dL (14.0-18.0)
[2018-11-12] VITALS (75 sets, daily range): BP systolic 107–153; BP diastolic 53–93
[2018-11-12] MEDS: DEXTROSE 5% WATER 1,000 ML IV SCH (00:18)
[2018-11-12] MEDS: IPRATROPIUM/ALBUTEROL 0.5-3(2.5)MG/3ML NEB HHN SCH ×6 (00:30→20:10)
[2018-11-12 00:47] LABS: HEMATOCRIT 24.6 % (42.0-52.0); HEMOGLOBIN 8.1 g/dL (14.0-18.0)
[2018-11-12 05:21] LABS: HEMATOCRIT. 22.4 % (42.0-52.0); HEMOGLOBIN. 7.3 g/dL (14.0-18.0); MEAN CORPUSCULAR HEMOGLOBIN 29.4 pg (28.0-32.0); MEAN PLATELET VOLUME 8.6 fl (7.4-10.4); PLATELET 297 x1000/uL (130-400); RED BLOOD CELL COUNT 2.46 mill/uL (4.7-6.1); RED CELL DISTRIBUTION WIDTH 17.4 % (11.6-14.6)
[2018-11-12 05:40] LABS: PHOSPHORUS 4.9 mg/dL (2.5-4.9)
[2018-11-12] MEDS: METRONIDAZOLE 500 MG PREMIX 100 ML IV SCH ×2 (06:26→17:25)
[2018-11-12] MEDS: LANTHANUM CARBONATE 500MG CHEW TABLET PO SCH ×3 (06:27→17:24)
[2018-11-12] MEDS: NYSTATIN POWDER 15GM TOP SCH ×2 (09:00→20:01)
[2018-11-12] MEDS: PANTOPRAZOLE SODIUM 40 MG/VIAL IV SCH ×2 (09:00→20:00)
[2018-11-12] MEDS: CITRIC ACID/SODIUM CITRATE SOLN 30ML UDC PO SCH ×3 (09:00→17:24)
[2018-11-12] MEDS: DOCUSATE SODIUM SUGAR FREE 100MG/10ML UDC NG SCH (09:00)
[2018-11-12] MEDS ORDERED: POTASSIUM CHLORIDE 20MEQ/PACKET PO SCH (10:30)
[2018-11-12 10:34] LABS: HEMATOCRIT 22.1 % (42.0-52.0); HEMOGLOBIN 7.2 g/dL (14.0-18.0)
[2018-11-12 10:47] LABS: PLATELET ESTIMATE NORMAL
[2018-11-12] MEDS: ACETAMINOPHEN 325MG TABLET PO PRN (20:00)
[2018-11-13] VITALS (88 sets, daily range): BP systolic 120–166; BP diastolic 58–78
[2018-11-13] MEDS: IPRATROPIUM/ALBUTEROL 0.5-3(2.5)MG/3ML NEB HHN SCH ×7 (00:24→23:52)
[2018-11-13] MEDS: METRONIDAZOLE 500 MG PREMIX 100 ML IV SCH ×2 (05:25→18:32)
[2018-11-13] MEDS: LANTHANUM CARBONATE 500MG CHEW TABLET PO SCH ×3 (06:29→18:31)
[2018-11-13] MEDS: CITRIC ACID/SODIUM CITRATE SOLN 30ML UDC PO SCH ×3 (08:12→18:31)
[2018-11-13] MEDS: DOCUSATE SODIUM SUGAR FREE 100MG/10ML UDC NG SCH (08:12)
[2018-11-13] MEDS: LEVOFLOXACIN 500MG PREMIX 100 ML IV SCH (08:13)
[2018-11-13] MEDS: PANTOPRAZOLE SODIUM 40 MG/VIAL IV SCH ×2 (08:13→20:00)
[2018-11-13] MEDS: NYSTATIN POWDER 15GM TOP SCH ×2 (08:13→20:01)
[2018-11-13 08:35] LABS: BG BASE EXCESS -1.2 mmol/L (-2.0-2.0); BG CARBOXYHEMOGLOBIN 0.3 % (0.5-1.5); BG DEOXYHEMOGLOBIN 2.2 % (0.0-5.0); BG FRACTION INSPIRED OXYGEN 40; BG HCO3 ACT 22.3 mmol/L (22.0-26.0); BG METHEMOGLOBIN 0.2 % (0.0-1.5); BG OXYGEN SATURATION 97.8 % (92.0-98.5); BG OXYHEMOGLOBIN 97.3 % (94.0-97.0); BG PCO2 32.4 mmHg (35.0-45.0); BG PH 7.455 (7.350-7.450); BG PO2 113.4 mmHg (75.0-100.0); BG SAMPLE SITE LEFT RADIAL; BG TIDAL VOLUME(mL) 600 mL; BG TOTAL HEMOGLOBIN 8.9 g/dL (12.0-18.0); BG VENT MODE VENT - A/C; BG VENT RATE 20 set
[2018-11-13 12:18] LABS: HEMATOCRIT 25.2 % (42.0-52.0); HEMOGLOBIN 8.2 g/dL (14.0-18.0); MEAN CORPUSCULAR HEMOGLOBIN 29.5 pg (28.0-32.0); MEAN CORPUSCULAR VOLUME 90.4 fL (80.0-94.0); PLATELET 326 x1000/uL (130-400); RED BLOOD CELL COUNT 2.79 mill/uL (4.7-6.1); RED CELL DISTRIBUTION WIDTH 16.5 % (11.6-14.6)
[2018-11-13 12:36] LABS: INR 1.4; PROTHROMBIN TIME 14.2 sec (9.1-11.1)
[2018-11-13 12:56] LABS: BG CARBOXYHEMOGLOBIN 0.3 % (0.5-1.5); BG DEOXYHEMOGLOBIN 1.6 % (0.0-5.0); BG FRACTION INSPIRED OXYGEN 40; BG HCO3 ACT 20.2 mmol/L (22.0-26.0); BG METHEMOGLOBIN 0.4 % (0.0-1.5); BG OXYGEN SATURATION 98.4 % (92.0-98.5); BG OXYHEMOGLOBIN 97.7 % (94.0-97.0); BG PCO2 30.8 mmHg (35.0-45.0); BG PH 7.434 (7.350-7.450); BG SAMPLE SITE LEFT RADIAL; BG TIDAL VOLUME(mL) 550 mL; BG TOTAL HEMOGLOBIN 13.1 g/dL (12.0-18.0); BG VENT MODE VENT - A/C; BG VENT RATE 16 set
[2018-11-13] MEDS ORDERED: ALBUMIN HUMAN 12.5GM/50ML (25%) IV SCH (13:15)
[2018-11-13] MEDS ORDERED: FUROSEMIDE 100MG/10ML VIAL IVP SCH (13:15)
[2018-11-13] MEDS: SUCRALFATE 1 G/10 ML UDC PO SCH ×2 (18:31→20:00)
[2018-11-13] MEDS: ACETAMINOPHEN 325MG TABLET PO PRN (20:01)
[2018-11-14] VITALS (84 sets, daily range): BP systolic 132–168; BP diastolic 57–84
[2018-11-14] MEDS: IPRATROPIUM/ALBUTEROL 0.5-3(2.5)MG/3ML NEB HHN SCH ×5 (04:08→20:50)
[2018-11-14] MEDS: ACETAMINOPHEN 325MG TABLET PO PRN ×2 (04:22→18:27)
[2018-11-14 05:33] LABS: BASOPHILS % 0.7 % (0.0-2.0); EOSINOPHILS % 0.5 % (0.0-5.0); HEMATOCRIT. 26.1 % (42.0-52.0); HEMOGLOBIN. 8.5 g/dL (14.0-18.0); LYMPHOCYTES % 13.4 % (20.0-50.0); MEAN CORPUSCULAR HEMOGLOBIN 29.6 pg (28.0-32.0); MEAN CORPUSCULAR VOLUME 90.8 fL (80.0-94.0); MEAN PLATELET VOLUME 8.1 fl (7.4-10.4); MONOCYTES % 6.1 % (2.0-8.0); NEUTROPHILS % 79.3 % (40.0-76.0); PLATELET 320 x1000/uL (130-400); RED BLOOD CELL COUNT 2.87 mill/uL (4.7-6.1); RED CELL DISTRIBUTION WIDTH 16.5 % (11.6-14.6)
[2018-11-14] MEDS: SUCRALFATE 1 G/10 ML UDC PO SCH ×4 (06:23→19:59)
[2018-11-14] MEDS: LANTHANUM CARBONATE 500MG CHEW TABLET PO SCH ×3 (06:24→18:07)
[2018-11-14] MEDS ORDERED: FUROSEMIDE 100MG/10ML VIAL IVP SCH (07:00)
[2018-11-14 08:20] LABS: BG BASE EXCESS 3.5 mmol/L (-2.0-2.0); BG DEOXYHEMOGLOBIN 1.3 % (0.0-5.0); BG FRACTION INSPIRED OXYGEN 40; BG HCO3 ACT 26.8 mmol/L (22.0-26.0); BG METHEMOGLOBIN 0.4 % (0.0-1.5); BG OXYGEN SATURATION 98.7 % (92.0-98.5); BG OXYHEMOGLOBIN 98.3 % (94.0-97.0); BG PCO2 34.8 mmHg (35.0-45.0); BG PH 7.504 (7.350-7.450); BG PO2 141.8 mmHg (75.0-100.0); BG SAMPLE SITE RIGHT BRACHIAL; BG TIDAL VOLUME(mL) 550 mL; BG TOTAL HEMOGLOBIN 8.3 g/dL (12.0-18.0); BG VENT MODE VENT - A/C; BG VENT RATE 16 set
[2018-11-14] MEDS: NYSTATIN POWDER 15GM TOP SCH ×2 (09:00→21:41)
[2018-11-14] MEDS ORDERED: POTASSIUM CHLORIDE INJ 40 MEQ in DEXT 5% WATER 250 ML IV SCH (09:00)
[2018-11-14 09:01] LABS: PHOSPHORUS 4.9 mg/dL (2.5-4.9)
[2018-11-14] MEDS: PANTOPRAZOLE SODIUM 40 MG/VIAL IV SCH ×2 (10:35→19:59)
[2018-11-14] MEDS: CITRIC ACID/SODIUM CITRATE SOLN 30ML UDC PO SCH ×3 (10:35→18:26)
[2018-11-14] MEDS: DOCUSATE SODIUM SUGAR FREE 100MG/10ML UDC NG SCH (10:35)
[2018-11-14 17:37] LABS: BG BASE EXCESS 3.1 mmol/L (-2.0-2.0); BG CARBOXYHEMOGLOBIN 0.3 % (0.5-1.5); BG DEOXYHEMOGLOBIN 3.3 % (0.0-5.0); BG FRACTION INSPIRED OXYGEN 35; BG METHEMOGLOBIN 0.3 % (0.0-1.5); BG OXYGEN SATURATION 96.7 % (92.0-98.5); BG OXYHEMOGLOBIN 96.1 % (94.0-97.0); BG PCO2 38.8 mmHg (35.0-45.0); BG PH 7.461 (7.350-7.450); BG PO2 94.7 mmHg (75.0-100.0); BG PRESSURE SUPPORT 15; BG SAMPLE SITE RIGHT BRACHIAL; BG TIDAL VOLUME(mL) 550 mL; BG TOTAL HEMOGLOBIN 9.6 g/dL (12.0-18.0); BG VENT MODE VENT - SIMV; BG VENT RATE 10 set
[2018-11-14] MEDS ORDERED: CLONIDINE 0.1MG TABLET PO PRN (22:30)
[2018-11-15] VITALS (54 sets, daily range): BP systolic 115–163; BP diastolic 56–90
[2018-11-15] MEDS: IPRATROPIUM/ALBUTEROL 0.5-3(2.5)MG/3ML NEB HHN SCH ×7 (00:43→23:51)
[2018-11-15 06:02] LABS: HEMATOCRIT. 26.6 % (42.0-52.0); HEMOGLOBIN. 8.5 g/dL (14.0-18.0); MEAN CORPUSCULAR HEMOGLOBIN 29.2 pg (28.0-32.0); MEAN CORPUSCULAR VOLUME 91.8 fL (80.0-94.0); MEAN PLATELET VOLUME 8.3 fl (7.4-10.4); PLATELET 314 x1000/uL (130-400); RED BLOOD CELL COUNT 2.89 mill/uL (4.7-6.1); RED CELL DISTRIBUTION WIDTH 16.6 % (11.6-14.6)
[2018-11-15] MEDS: LANTHANUM CARBONATE 500MG CHEW TABLET PO SCH ×3 (06:16→16:09)
[2018-11-15] MEDS: SUCRALFATE 1 G/10 ML UDC PO SCH ×4 (06:16→20:50)
[2018-11-15] MEDS ORDERED: DEXT 5% WATER 500 ML IV ONE (08:00)
[2018-11-15] MEDS ORDERED: POTASSIUM CHLORIDE 20MEQ/PACKET PO SCH (08:00)
[2018-11-15 08:13] LABS: BG BASE EXCESS 5.9 mmol/L (-2.0-2.0); BG CARBOXYHEMOGLOBIN 0.3 % (0.5-1.5); BG DEOXYHEMOGLOBIN 3.1 % (0.0-5.0); BG FRACTION INSPIRED OXYGEN 35; BG HCO3 ACT 28.7 mmol/L (22.0-26.0); BG METHEMOGLOBIN 1.4 % (0.0-1.5); BG OXYGEN SATURATION 96.8 % (92.0-98.5); BG OXYHEMOGLOBIN 95.2 % (94.0-97.0); BG PCO2 34.1 mmHg (35.0-45.0); BG PH 7.543 (7.350-7.450); BG PO2 99.9 mmHg (75.0-100.0); BG SAMPLE SITE RIGHT RADIAL; BG TIDAL VOLUME(mL) 550 mL; BG TOTAL HEMOGLOBIN 8.4 g/dL (12.0-18.0); BG VENT MODE VENT - A/C; BG VENT RATE 16 set
[2018-11-15] MEDS: PANTOPRAZOLE SODIUM 40 MG/VIAL IV SCH ×2 (09:04→20:50)
[2018-11-15] MEDS: DOCUSATE SODIUM SUGAR FREE 100MG/10ML UDC NG SCH (09:04)
[2018-11-15] MEDS: NYSTATIN POWDER 15GM TOP SCH ×2 (09:05→20:51)
[2018-11-15 10:28] LABS: PLATELET ESTIMATE NORMAL
[2018-11-15] MEDS: LEVOFLOXACIN 500MG PREMIX 100 ML IV SCH (13:40)
[2018-11-15 19:12] LABS: BG BASE EXCESS 4.8 mmol/L (-2.0-2.0); BG CARBOXYHEMOGLOBIN 0.2 % (0.5-1.5); BG DEOXYHEMOGLOBIN 2.4 % (0.0-5.0); BG FRACTION INSPIRED OXYGEN 35; BG HCO3 ACT 28.3 mmol/L (22.0-26.0); BG METHEMOGLOBIN 0.4 % (0.0-1.5); BG OXYGEN SATURATION 97.6 % (92.0-98.5); BG PCO2 37.3 mmHg (35.0-45.0); BG PH 7.498 (7.350-7.450); BG PO2 105.7 mmHg (75.0-100.0); BG SAMPLE SITE RIGHT RADIAL; BG TIDAL VOLUME(mL) 550 mL; BG TOTAL HEMOGLOBIN 8.7 g/dL (12.0-18.0); BG VENT MODE VENT - A/C; BG VENT RATE 10 set
[2018-11-15] MEDS: ACETAMINOPHEN 325MG TABLET PO PRN (20:57)
[2018-11-16] VITALS (77 sets, daily range): BP systolic 108–185; BP diastolic 49–91
[2018-11-16] MEDS: IPRATROPIUM/ALBUTEROL 0.5-3(2.5)MG/3ML NEB HHN SCH ×6 (03:48→23:53)
[2018-11-16 05:36] LABS: BASOPHILS % 0.6 % (0.0-2.0); EOSINOPHILS % 0.9 % (0.0-5.0); HEMATOCRIT. 27.5 % (42.0-52.0); HEMOGLOBIN. 8.8 g/dL (14.0-18.0); LYMPHOCYTES % 14.8 % (20.0-50.0); MEAN CORPUSCULAR HEMOGLOBIN 29.7 pg (28.0-32.0); MEAN CORPUSCULAR VOLUME 92.6 fL (80.0-94.0); MEAN PLATELET VOLUME 8.3 fl (7.4-10.4); MONOCYTES % 5.7 % (2.0-8.0); PLATELET 300 x1000/uL (130-400); RED BLOOD CELL COUNT 2.97 mill/uL (4.7-6.1); RED CELL DISTRIBUTION WIDTH 16.2 % (11.6-14.6)
[2018-11-16] MEDS: LANTHANUM CARBONATE 500MG CHEW TABLET PO SCH ×3 (06:14→16:26)
[2018-11-16] MEDS: SUCRALFATE 1 G/10 ML UDC PO SCH ×4 (06:14→20:26)
[2018-11-16] MEDS ORDERED: POTASSIUM CHLORIDE INJ 40 MEQ in DEXT 5% WATER 250 ML IV SCH (06:30)
[2018-11-16] MEDS: DEXTROSE 5% WATER 1,000 ML IV SCH ×2 (06:54→16:26)
[2018-11-16] MEDS: DOCUSATE SODIUM SUGAR FREE 100MG/10ML UDC NG SCH (09:00)
[2018-11-16 09:15] LABS: BG BASE EXCESS 5.5 mmol/L (-2.0-2.0); BG CARBOXYHEMOGLOBIN 0.3 % (0.5-1.5); BG DEOXYHEMOGLOBIN 2.3 % (0.0-5.0); BG FRACTION INSPIRED OXYGEN 35; BG HCO3 ACT 29.3 mmol/L (22.0-26.0); BG METHEMOGLOBIN 0.4 % (0.0-1.5); BG OXYGEN SATURATION 97.7 % (92.0-98.5); BG PH 7.483 (7.350-7.450); BG PO2 110.6 mmHg (75.0-100.0); BG SAMPLE SITE RIGHT RADIAL; BG TIDAL VOLUME(mL) 550 mL; BG TOTAL HEMOGLOBIN 9.8 g/dL (12.0-18.0); BG VENT MODE VENT - A/C; BG VENT RATE 10 set
[2018-11-16] MEDS: PANTOPRAZOLE SODIUM 40 MG/VIAL IV SCH ×2 (09:40→20:25)
[2018-11-16] MEDS: NYSTATIN POWDER 15GM TOP SCH ×2 (09:48→20:26)
[2018-11-16 10:29] LABS: INR 1.3; PARTIAL THROMBOPLASTIN TIME 29.4 sec (23.4-31.0); PROTHROMBIN TIME 13.5 sec (9.1-11.1)
[2018-11-16] MEDS ORDERED: ROCURONIUM BROMIDE 10MG/ML VIAL 5ML IV ONE (13:44)
[2018-11-17] VITALS (37 sets, daily range): BP systolic 106–162; BP diastolic 46–102
[2018-11-17] MEDS: IPRATROPIUM/ALBUTEROL 0.5-3(2.5)MG/3ML NEB HHN SCH ×5 (03:53→19:42)
[2018-11-17 05:25] LABS: BASOPHILS % 0.4 % (0.0-2.0); EOSINOPHILS % 1.4 % (0.0-5.0); HEMATOCRIT. 26.7 % (42.0-52.0); HEMOGLOBIN. 8.4 g/dL (14.0-18.0); LYMPHOCYTES % 15.6 % (20.0-50.0); MEAN CORPUSCULAR HEMOGLOBIN 29.4 pg (28.0-32.0); MEAN CORPUSCULAR VOLUME 93.6 fL (80.0-94.0); MEAN PLATELET VOLUME 8.6 fl (7.4-10.4); MONOCYTES % 5.6 % (2.0-8.0); PLATELET 295 x1000/uL (130-400); RED BLOOD CELL COUNT 2.86 mill/uL (4.7-6.1); RED CELL DISTRIBUTION WIDTH 16.6 % (11.6-14.6)
[2018-11-17 05:32] LABS: PHOSPHORUS 3.6 mg/dL (2.5-4.9)
[2018-11-17] MEDS: LANTHANUM CARBONATE 500MG CHEW TABLET PO SCH ×4 (06:06→18:43)
[2018-11-17] MEDS: SUCRALFATE 1 G/10 ML UDC PO SCH ×4 (06:06→21:28)
[2018-11-17] MEDS ORDERED: POTASSIUM CHLORIDE 20MEQ/PACKET PO SCH (07:00)
[2018-11-17] MEDS: DOCUSATE SODIUM SUGAR FREE 100MG/10ML UDC NG SCH (08:39)
[2018-11-17] MEDS: PANTOPRAZOLE SODIUM 40 MG/VIAL IV SCH ×2 (08:39→21:31)
[2018-11-17] MEDS: NYSTATIN POWDER 15GM TOP SCH ×2 (08:39→21:31)
[2018-11-17] MEDS: DEXTROSE 5% WATER 1,000 ML IV SCH ×2 (08:40→22:57)
[2018-11-17 08:42] LABS: BG BASE EXCESS 3.5 mmol/L (-2.0-2.0); BG CARBOXYHEMOGLOBIN 0.2 % (0.5-1.5); BG DEOXYHEMOGLOBIN 1.8 % (0.0-5.0); BG FRACTION INSPIRED OXYGEN 35; BG HCO3 ACT 27.3 mmol/L (22.0-26.0); BG METHEMOGLOBIN 0.5 % (0.0-1.5); BG OXYGEN SATURATION 98.2 % (92.0-98.5); BG OXYHEMOGLOBIN 97.5 % (94.0-97.0); BG PCO2 38.2 mmHg (35.0-45.0); BG PH 7.472 (7.350-7.450); BG PO2 121.9 mmHg (75.0-100.0); BG SAMPLE SITE RIGHT RADIAL; BG TIDAL VOLUME(mL) 550 mL; BG TOTAL HEMOGLOBIN 9.2 g/dL (12.0-18.0); BG VENT MODE VENT - A/C; BG VENT RATE 10 set
[2018-11-17] MEDS: LEVOFLOXACIN 500MG PREMIX 100 ML IV SCH (16:02)
[2018-11-18] VITALS (12 sets, daily range): BP systolic 130–157; BP diastolic 59–83
[2018-11-18] MEDS: IPRATROPIUM/ALBUTEROL 0.5-3(2.5)MG/3ML NEB HHN SCH ×5 (01:09→21:13)
[2018-11-18 06:16] LABS: BASOPHILS % 0.5 % (0.0-2.0); EOSINOPHILS % 1.5 % (0.0-5.0); HEMATOCRIT. 25.3 % (42.0-52.0); HEMOGLOBIN. 8.2 g/dL (14.0-18.0); LYMPHOCYTES % 14.1 % (20.0-50.0); MEAN CORPUSCULAR HEMOGLOBIN 30.4 pg (28.0-32.0); MEAN CORPUSCULAR VOLUME 93.3 fL (80.0-94.0); MEAN PLATELET VOLUME 8.8 fl (7.4-10.4); MONOCYTES % 6.2 % (2.0-8.0); NEUTROPHILS % 77.7 % (40.0-76.0); PLATELET 290 x1000/uL (130-400); RED BLOOD CELL COUNT 2.71 mill/uL (4.7-6.1); RED CELL DISTRIBUTION WIDTH 16.8 % (11.6-14.6)
[2018-11-18 07:18] LABS: PHOSPHORUS 3.8 mg/dL (2.5-4.9)
[2018-11-18] MEDS: IPRATROPIUM/ALBUTEROL 0.5-3(2.5)MG/3ML NEB HHN PRN (08:26)
[2018-11-18] MEDS: PANTOPRAZOLE SODIUM 40 MG/VIAL IV SCH ×2 (08:45→21:57)
[2018-11-18] MEDS: LANTHANUM CARBONATE 500MG CHEW TABLET PO SCH ×3 (08:45→17:22)
[2018-11-18] MEDS: NYSTATIN POWDER 15GM TOP SCH ×2 (08:46→21:57)
[2018-11-18] MEDS: DOCUSATE SODIUM SUGAR FREE 100MG/10ML UDC NG SCH (08:46)
[2018-11-18] MEDS: SUCRALFATE 1 G/10 ML UDC PO SCH ×4 (08:46→21:57)
[2018-11-18] MEDS: DEXTROSE 5% WATER 1,000 ML IV SCH (13:21)
[2018-11-19] VITALS (11 sets, daily range): BP systolic 103–163; BP diastolic 52–91
[2018-11-19] MEDS: IPRATROPIUM/ALBUTEROL 0.5-3(2.5)MG/3ML NEB HHN SCH ×5 (00:40→20:45)
[2018-11-19 06:56] LABS: BASOPHILS % 1.1 % (0.0-2.0); EOSINOPHILS % 1.8 % (0.0-5.0); HEMATOCRIT. 25.2 % (42.0-52.0); HEMOGLOBIN. 8.2 g/dL (14.0-18.0); LYMPHOCYTES % 16.3 % (20.0-50.0); MEAN CORPUSCULAR HEMOGLOBIN 30.5 pg (28.0-32.0); MEAN CORPUSCULAR VOLUME 93.3 fL (80.0-94.0); MEAN PLATELET VOLUME 9.2 fl (7.4-10.4); MONOCYTES % 6.3 % (2.0-8.0); NEUTROPHILS % 74.5 % (40.0-76.0); PLATELET 297 x1000/uL (130-400); RED CELL DISTRIBUTION WIDTH 16.1 % (11.6-14.6)
[2018-11-19] MEDS: DEXTROSE 5% WATER 1,000 ML IV SCH (08:06)
[2018-11-19] MEDS: SUCRALFATE 1 G/10 ML UDC PO SCH ×4 (08:07→21:46)
[2018-11-19] MEDS: LANTHANUM CARBONATE 500MG CHEW TABLET PO SCH ×3 (09:45→17:35)
[2018-11-19] MEDS: PANTOPRAZOLE SODIUM 40 MG/VIAL IV SCH ×2 (09:45→21:46)
[2018-11-19] MEDS: NYSTATIN POWDER 15GM TOP SCH ×2 (09:46→21:46)
[2018-11-19] MEDS ORDERED: LEVOFLOXACIN 250MG TABLET PO SCH (11:00)
[2018-11-19] MEDS ORDERED: POTASSIUM CHLORIDE 20MEQ/PACKET NG NR (11:00)
[2018-11-19] MEDS: DOCUSATE SODIUM SUGAR FREE 100MG/10ML UDC NG SCH (14:06)
[2018-11-19 17:02] LABS: BG BASE EXCESS 2.4 mmol/L (-2.0-2.0); BG CARBOXYHEMOGLOBIN 0.3 % (0.5-1.5); BG DEOXYHEMOGLOBIN 2.2 % (0.0-5.0); BG FRACTION INSPIRED OXYGEN 40; BG HCO3 ACT 25.8 mmol/L (22.0-26.0); BG METHEMOGLOBIN 0.4 % (0.0-1.5); BG OXYGEN SATURATION 97.8 % (92.0-98.5); BG OXYHEMOGLOBIN 97.1 % (94.0-97.0); BG PCO2 35.5 mmHg (35.0-45.0); BG PO2 106.6 mmHg (75.0-100.0); BG SAMPLE SITE RIGHT RADIAL; BG TIDAL VOLUME(mL) 500 mL; BG VENT MODE VENT - A/C; BG VENT RATE 10 set
[2018-11-20] VITALS (9 sets, daily range): BP systolic 93–145; BP diastolic 50–76
[2018-11-20] MEDS: IPRATROPIUM/ALBUTEROL 0.5-3(2.5)MG/3ML NEB HHN SCH ×4 (00:33→12:02)
[2018-11-20] MEDS: DEXTROSE 5% WATER 1,000 ML IV SCH (05:11)
[2018-11-20 09:53] LABS: BASOPHILS % 0.8 % (0.0-2.0); EOSINOPHILS % 1.9 % (0.0-5.0); HEMATOCRIT. 25.2 % (42.0-52.0); LYMPHOCYTES % 14.1 % (20.0-50.0); MEAN CORPUSCULAR HEMOGLOBIN 29.5 pg (28.0-32.0); MEAN CORPUSCULAR VOLUME 93.3 fL (80.0-94.0); MEAN PLATELET VOLUME 9.2 fl (7.4-10.4); MONOCYTES % 6.6 % (2.0-8.0); NEUTROPHILS % 76.6 % (40.0-76.0); PLATELET 315 x1000/uL (130-400); RED BLOOD CELL COUNT 2.71 mill/uL (4.7-6.1); RED CELL DISTRIBUTION WIDTH 15.8 % (11.6-14.6)
[2018-11-20] MEDS: PANTOPRAZOLE SODIUM 40 MG/VIAL IV SCH (10:36)
[2018-11-20] MEDS: SUCRALFATE 1 G/10 ML UDC PO SCH ×2 (10:37→12:10)
[2018-11-20] MEDS: DOCUSATE SODIUM SUGAR FREE 100MG/10ML UDC NG SCH (10:37)
[2018-11-20] MEDS: NYSTATIN POWDER 15GM TOP SCH (10:41)
[2018-11-20] MEDS: LANTHANUM CARBONATE 500MG CHEW TABLET PO SCH ×2 (10:43→14:03)
[2018-11-20] MEDS ORDERED: POTASSIUM CHLORIDE 20MEQ/PACKET NG NR (11:00)
[2018-11-20] MEDS ORDERED: POTASSIUM CHLORIDE 20MEQ/PACKET GT NR (11:30)
== END 2018-11-20 15:15 | DRG 3 ==
LOC: ER 10:15 → MICUSO 13:46 → EDBEDREQSVC 17:17 → ENRESERV 19:56 → 5EST 11-03 15:30 → MICUSO 11-05 08:00 → 5EST 11-17 12:30
PROVIDERS: ADMIT Hospitalist; ATTEND Hospitalist
PROC: 5A09357 Assistance with Respiratory Ventilation, Less than 24 Consecutive Hours, Continuous Positive Airway Pressure (ICD-10-PCS; 2018-10-29)
PROC: 06HM33Z Insertion of Infusion Device into Right Femoral Vein, Percutaneous Approach (ICD-10-PCS; 2018-10-29)
PROC: 5A1945Z Respiratory Ventilation, 24-96 Consecutive Hours (ICD-10-PCS; 2018-10-30)
PROC: 0BH17EZ Insertion of Endotracheal Airway into Trachea, Via Natural or Artificial Opening (ICD-10-PCS; 2018-10-30)
PROC: 05HY33Z Insertion of Infusion Device into Upper Vein, Percutaneous Approach (ICD-10-PCS; 2018-11-01)
PROC: B54MZZA Ultrasonography of Right Upper Extremity Veins, Guidance (ICD-10-PCS; 2018-11-01)
PROC: 5A1955Z Respiratory Ventilation, Greater than 96 Consecutive Hours (ICD-10-PCS; principal; 2018-11-05)
PROC: 0BH17EZ Insertion of Endotracheal Airway into Trachea, Via Natural or Artificial Opening (ICD-10-PCS; 2018-11-05)
PROC: 0DB68ZX Excision of Stomach, Via Natural or Artificial Opening Endoscopic, Diagnostic (ICD-10-PCS; 2018-11-06)
PROC: 0DH68UZ Insertion of Feeding Device into Stomach, Via Natural or Artificial Opening Endoscopic (ICD-10-PCS; 2018-11-11)
PROC: 30233N1 Transfusion of Nonautologous Red Blood Cells into Peripheral Vein, Percutaneous Approach (ICD-10-PCS; 2018-11-12)
PROC: 0B110F4 Bypass Trachea to Cutaneous with Tracheostomy Device, Open Approach (ICD-10-PCS; 2018-11-16)
PROC: 0GBJ0ZZ Excision of Thyroid Gland Isthmus, Open Approach (ICD-10-PCS; 2018-11-16)
DX: A41.59 Other Gram-negative sepsis (principal); N17.0 Acute kidney failure with tubular necrosis; R65.21 Severe sepsis with septic shock; E43 Unspecified severe protein-calorie malnutrition; G93.41 Metabolic encephalopathy; J15.6 Pneumonia due to other Gram-negative bacteria; J96.01 Acute respiratory failure with hypoxia; K22.6 Gastro-esophageal laceration-hemorrhage syndrome; I50.43 Acute on chronic combined systolic (congestive) and diastolic (congestive) heart failure; K25.4 Chronic or unspecified gastric ulcer with hemorrhage; N39.0 Urinary tract infection, site not specified; I13.0 Hypertensive heart and chronic kidney disease with heart failure and stage 1 through stage 4 chronic kidney disease, or unspecified chronic kidney disease; D61.818 Other pancytopenia; M62.82 Rhabdomyolysis; E87.0 Hyperosmolality and hypernatremia; G81.91 Hemiplegia, unspecified affecting right dominant side; I42.0 Dilated cardiomyopathy; Z99.11 Dependence on respirator [ventilator] status; E86.0 Dehydration; I95.9 Hypotension, unspecified; E11.22 Type 2 diabetes mellitus with diabetic chronic kidney disease; E78.1 Pure hyperglyceridemia; E78.5 Hyperlipidemia, unspecified; E87.6 Hypokalemia; I08.0 Rheumatic disorders of both mitral and aortic valves; I25.10 Atherosclerotic heart disease of native coronary artery without angina pectoris; K29.60 Other gastritis without bleeding; N18.9 Chronic kidney disease, unspecified; R13.12 Dysphagia, oropharyngeal phase; R47.02 Dysphasia; Z78.1 Physical restraint status; Z87.19 Personal history of other diseases of the digestive system; Z93.1 Gastrostomy status; Z74.01 Bed confinement status; Z68.34 Body mass index [BMI] 34.0-34.9, adult; Z79.82 Long term (current) use of aspirin; Z79.899 Other long term (current) drug therapy
CPT/HCPCS: 31500; 36415; 36556; 36569; 36600; 70551; 71045; 74018; 76937; 80048; 80061; 80202; 80305; 82040; 82375; 82550; 82553; 82575; 82805; 82962; 83605; 83735; 83880; 84100; 84134; 84145; 84478; 84484; 85014; 85018; 85027; 85379; 86850; 86900; 86920; 87070; 87077; 87186; 87804; 88305; 88309; 88312; 88313; 92610; 93005; 93306; 93970; 94002; 94003; 94640; 94660; 94667; 96365; 96366; 96368; 97110; 97161; 97164; 97167; 97530; 97535; 99152; 99285; A6261; C1725; C1769; C9113; G0482; J0330; J0690; J0692; J1650; J1940; J1956; J2060; J2250; J2354; J2370; J2543; J2704; J3010; J3370; J3480; J3490; J7030; J7040; J7042; J7050; J7060; J7070; J7608; J7620; P9016; P9047; G0500

== ENCOUNTER 2019-07-27 17:43 | Inpatient (IN) | payer MEDICARE ==
[~2019-07-27] VITALS: Ht 170.2 cm; Wt 73.5 kg
[~2019-07-27 17:43] MED LIST changes: -ASPI-1159 PO; +ASPI-1393 PO
[2019-07-27 19:29] LABS: BASOPHILS % 0.2 % (0.0-2.0); EOSINOPHILS % 0.9 % (0.0-5.0); HEMATOCRIT. 29.4 % (42.0-52.0); HEMOGLOBIN. 9.4 g/dL (14.0-18.0); LYMPHOCYTES % 12.1 % (20.0-50.0); MEAN CORPUSCULAR HEMOGLOBIN 27.1 pg (28.0-32.0); MEAN CORPUSCULAR VOLUME 84.7 fL (80.0-94.0); MEAN PLATELET VOLUME 8.2 fl (7.4-10.4); MONOCYTES % 9.1 % (2.0-8.0); NEUTROPHILS % 77.7 % (40.0-76.0); PLATELET 245 x1000/uL (130-400); RED BLOOD CELL COUNT 3.47 mill/uL (4.7-6.1); RED CELL DISTRIBUTION WIDTH 18.1 % (11.6-14.6)
[2019-07-27 19:30] LABS: CHLORIDE 108 mEq/L (98-107)
[2019-07-27] MEDS ORDERED: ASPIRIN 81MG TABLET PO ONE (19:30)
[2019-07-27] MEDS ORDERED: FUROSEMIDE 40MG/4ML VIAL IV ONE (19:30)
[2019-07-27 19:32] LABS: INR 1.1; PARTIAL THROMBOPLASTIN TIME 27.9 sec (23.4-31.0); PROTHROMBIN TIME 10.9 sec (9.6-11.0)
[2019-07-27 19:32] LABS: CLARITY URINE CLOUDY (CLEAR); COLOR URINE YELLOW (YELLOW); KETONES URINE NEGATIVE (NEGATIVE); LEUKOCYTE ESTERASE URINE 3+ (NEGATIVE); NITRITE URINE NEGATIVE (NEGATIVE); OCCULT BLOOD URINE TRACE (NEGATIVE); PROTEIN URINE 2+ (NEGATIVE); SPECIFIC GRAVITY URINE 1.012 (1.005-1.030); UROBILINOGEN URINE 0.2 E.U./dL (0.2-1.0)
[2019-07-27 19:33] LABS: ETHANOL BLOOD < 10 mg/dL
[2019-07-27 19:46] LABS: *AMPHETAMINES SCREEN URINE NEGATIVE (NEGATIVE); *BARBITURATES SCREEN URINE NEGATIVE (NEGATIVE); *BENZODIAZEPINES SCREEN URINE NEGATIVE (NEGATIVE); *COCAINE SCREEN URINE NEGATIVE (NEGATIVE); METHADONE URINE SCREEN NEGATIVE (NEGATIVE); OPIATES URINE SCREEN NEGATIVE (NEGATIVE)
[2019-07-27 19:48] LABS: CANNABINOID URINE SCREEN NEGATIVE (NEGATIVE); PHENCYCLIDINE URINE SCREEN NEGATIVE (NEGATIVE)
[2019-07-27] MEDS ORDERED: VANCOMYCIN 1 G PREMIX 200 ML IV ONE (22:30)
[2019-07-27] MEDS ORDERED: PIPERACILLIN/TAZ 3.375G PREMIX 50 ML IV ONE (22:30)
[2019-07-28 02:17] VITALS: BP 118/66
[2019-07-28 04:00] VITALS: BP 115/64
[2019-07-28 04:17] VITALS: BP 118/66
[2019-07-28] MEDS: SODIUM CHLORIDE 0.9% 1,000 ML IV SCH ×2 (06:35→18:55)
[2019-07-28 08:00] VITALS: BP 135/75
[2019-07-28 09:16] LABS: CHLORIDE 110 mEq/L (98-107)
[2019-07-28 12:00] VITALS: BP 121/72
[2019-07-28] MEDS ORDERED: ONDANSETRON HCL 4MG/2ML INJ IV PRN (13:30)
[2019-07-28] MEDS ORDERED: CLONIDINE 0.1MG TABLET PO PRN (13:30)
[2019-07-28] MEDS ORDERED: MAGNESIUM/ALUMINUM HYDROXIDE/SIMETHICONE 30ML UDC PO PRN (13:30)
[2019-07-28] MEDS ORDERED: ACETAMINOPHEN 650MG SUPP PR PRN (13:30)
[2019-07-28] MEDS ORDERED: ACETAMINOPHEN 325MG TABLET PO PRN (13:30)
[2019-07-28] MEDS ORDERED: ACETAMINOPHEN 650MG/20.3ML UDC GT PRN (13:30)
[2019-07-28] MEDS: SODIUM CHLORIDE 0.9% INJ 3ML FLUSH IVF SCH ×2 (14:00→21:57)
[2019-07-28] MEDS ORDERED: IPRATROPIUM/ALBUTEROL 0.5-3(2.5)MG/3ML NEB HHN PRN (14:00)
[2019-07-28] MEDS: SODIUM CHLORIDE 0.45% 1,000 ML IV SCH (14:00)
[2019-07-28] MEDS ORDERED: LEVOFLOXACIN 500MG PREMIX 100 ML IV NR (15:00)
[2019-07-28 16:00] VITALS: BP 121/74
[2019-07-28 16:58] LABS: CREATINE KINASE 225 IU/L (39-308)
[2019-07-28 16:59] LABS: CREATINE KINASE MB FRACTION 1.9 ng/mL (0.5-3.6)
[2019-07-28] MEDS: ENOXAPARIN 40MG/0.4ML SYR SUBCUT SCH (17:46)
[2019-07-29] VITALS: BP 147/76
[2019-07-29 00:36] LABS: CREATINE KINASE 222 IU/L (39-308)
[2019-07-29 04:00] VITALS: BP 132/84
[2019-07-29] MEDS: SODIUM CHLORIDE 0.45% 1,000 ML IV SCH ×2 (06:44→16:40)
[2019-07-29] MEDS: SODIUM CHLORIDE 0.9% INJ 3ML FLUSH IVF SCH ×3 (06:44→21:47)
[2019-07-29 07:17] LABS: CHLORIDE 112 mEq/L (98-107)
[2019-07-29 07:19] LABS: BASOPHILS % 0.4 % (0.0-2.0); EOSINOPHILS % 3.8 % (0.0-5.0); HEMATOCRIT. 28.9 % (42.0-52.0); HEMOGLOBIN. 9.3 g/dL (14.0-18.0); MEAN CORPUSCULAR HEMOGLOBIN 27.5 pg (28.0-32.0); MEAN CORPUSCULAR VOLUME 85.3 fL (80.0-94.0); MEAN PLATELET VOLUME 8.4 fl (7.4-10.4); MONOCYTES % 11.9 % (2.0-8.0); NEUTROPHILS % 56.9 % (40.0-76.0); PLATELET 240 x1000/uL (130-400); RED BLOOD CELL COUNT 3.39 mill/uL (4.7-6.1); RED CELL DISTRIBUTION WIDTH 17.9 % (11.6-14.6)
[2019-07-29 07:24] LABS: LDL CHOLESTEROL 81 mg/dL (5-100)
[2019-07-29 07:25] LABS: HDL CHOLESTEROL 67 mg/dL (40-59)
[2019-07-29 08:00] VITALS: BP 130/76
[2019-07-29 12:00] VITALS: BP 109/67
[2019-07-29] MEDS ORDERED: LEVOFLOXACIN 250MG PREMIX 50 ML IV SCH (14:30)
[2019-07-29] MEDS: ENOXAPARIN 40MG/0.4ML SYR SUBCUT SCH (15:05)
[2019-07-29 16:00] VITALS: BP 155/54
[2019-07-29 20:00] VITALS: BP 152/67
[2019-07-29] MEDS ORDERED: PIPERACILLIN/TAZOBACTAM 2.25 G in DEXTROSE 5% WATER 50 ML IV SCH (23:15)
[2019-07-30] VITALS: BP 135/79
[2019-07-30] MEDS: PIPERACILLIN/TAZOBACTAM 2.25 G in DEXTROSE 5% WATER 50 ML IV SCH ×2 (02:35→05:38)
[2019-07-30 04:00] VITALS: BP 140/72
[2019-07-30] MEDS: SODIUM CHLORIDE 0.9% INJ 3ML FLUSH IVF SCH ×3 (05:33→21:45)
[2019-07-30] MEDS: SODIUM CHLORIDE 0.45% 1,000 ML IV SCH ×2 (05:39→18:24)
[2019-07-30 08:00] VITALS: BP 142/74
[2019-07-30] MEDS: CEFAZOLIN 1000MG PREMIX 50 ML IV SCH ×2 (10:28→18:24)
[2019-07-30 12:00] VITALS: BP 133/8
[2019-07-30] MEDS: ENOXAPARIN 40MG/0.4ML SYR SUBCUT SCH (13:32)
[2019-07-30 16:00] VITALS: BP 147/69
[2019-07-31] VITALS: BP 116/83
[2019-07-31] MEDS: CEFAZOLIN 1000MG PREMIX 50 ML IV SCH ×2 (02:28→10:43)
[2019-07-31 04:00] VITALS: BP 134/93
[2019-07-31] MEDS: SODIUM CHLORIDE 0.9% INJ 3ML FLUSH IVF SCH (04:59)
[2019-07-31 08:00] VITALS: BP 137/86
[2019-07-31] MEDS: SODIUM CHLORIDE 0.45% 1,000 ML IV SCH (08:23)
[2019-07-31] MEDS ORDERED: AMPI250V3 PO (12:04)
[2019-07-31 12:11] VITALS: BP 137/86
== END 2019-07-31 14:18 | disposition home or self-care (01) | DRG 871 ==
LOC: ER 17:43 → 8WST 22:43 → EDBEDREQ 22:47 → EDBEDREQTM 22:47 → ENRESERV 23:40
PROVIDERS: ADMIT Family Medicine; ATTEND Family Medicine
DX: A41.9 Sepsis, unspecified organism (principal); I50.31 Acute diastolic (congestive) heart failure; N39.0 Urinary tract infection, site not specified; R26.9 Unspecified abnormalities of gait and mobility; I11.0 Hypertensive heart disease with heart failure; D63.8 Anemia in other chronic diseases classified elsewhere; I25.10 Atherosclerotic heart disease of native coronary artery without angina pectoris; Z87.01 Personal history of pneumonia (recurrent)
CPT/HCPCS: 36415; 71045; 80061; 80076; 80305; 80320; 81003; 82550; 82553; 83605; 83735; 83880; 84484; 87077; 87186; 93005; 93970; 96365; 99285; J0690; J1650; J1940; J1956; J2543; J3370; J7030; J7060; G0480